=== PATIENT | male | born 1985 ===

== ENCOUNTER 2021-01-04 03:23 | Emergency (ER) | payer SELFPAY ==
[2021-01-04 03:29] VITALS: BP 150/96; PULSE 60; RESP 16; TEMP 36.7; O2SAT 95
--- NOTE | 2021-01-04 03:30 | DI.RAD_ITS ---
Exam(s) XR HAND RT LIMITED EXAM: XR HAND RT LIMITED CLINICAL HISTORY: pain mid hand, pt refuses to give information. TECHNIQUE: 2D digital imaging was performed of the right hand. Two images were obtained. AP and obl ique views were obtained. COMPARISON: No exams were available for comparison FINDINGS: BONES: No acute fracture is present. No bony destructive lesion is seen. JOINTS: No dislocation present. SOFT TISSUE: Normal. IMPRESSION: Unremarkable radiographs of the right hand. DATA REPOSITORY: RADIATION DOSE DELIVERED:
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
== END 2021-01-04 04:34 | disposition home or self-care (01) ==
PROVIDERS: Emergency Provider Student in an Organized Health Care Education/Training Program
DX: S60.021A Contusion of right index finger without damage to nail, initial encounter (principal); S30.0XXA Contusion of lower back and pelvis, initial encounter; X58.XXXA Exposure to other specified factors, initial encounter
CPT/HCPCS: 99285; 73120; 99283